=== PATIENT | male | born 1970 | race African-American/Black ===

== ENCOUNTER 2019-10-29 16:24 | Emergency (ER) | payer BC ==
[~2019-10-29] VITALS: Ht 182.9 cm; Wt 106.6 kg
[~2019-10-29 16:24] MED LIST: ACETAMINOPHEN325 M1 PO; ASPIRIN EC81 M1 PO; CALCIUM GLUCON650 MG PO; HYDROCHLOROTHIA25 M1 PO; HYDROCODON-ACE1 EAC7 PO; K-DUR 20 MEQ T20 MEQ PO; KLOR-CON 10 ER10 MEQ; KLOR-CON 10 ER10 MEQ PO; MAXALT MLT10 MG PO; NAPROSYN500 MG PO; NORCO 5-325 TA1 EACH PO
[2019-10-29 16:50] LABS: HEMATOCRIT 23.4 % (42.0-52.0); MCH 19.1 pg (26.0-34.0); MCHC 29.9 g/dL (28.0-37.0); MCV 63.7 fL (80.0-100.0); PLATELET COUNT 372 thou/uL (150-400); RBC 3.68 mil/uL (4.50-6.00); RDW 19.9 % (10.5-14.5); WBC 6.6 thou/uL (4.0-11.0)
[2019-10-29 17:08] LABS: ANION GAP 11 mmol/L (7-16); BUN 14 mg/dL (7-18); CHLORIDE 101 mmol/L (98-107); CO2 23 mmol/L (21-32); CREATININE 1.5 mg/dL (0.7-1.3); GLUCOSE 105 mg/dL (74-106); SODIUM 135 mmol/L (136-145)
[2019-10-29 17:13] LABS: ABSOLUTE NEUTROPHILS 3.3 thou/uL (1.4-8.2); ANISOCYTOSIS 1+
[2019-10-29 17:14] LABS: HYPOCHROMASIA 2+; MICROCYTES 2+; POLYCHROMASIA OCCASIONAL
[2019-10-29 17:18] LABS: ALBUMIN 3.4 g/dL (3.4-5.0); DIRECT BILIRUBIN 0.4 mg/dL (<0.1-0.2); SGOT 26 U/L (15-37); SGPT 30 U/L (30-65); TOTAL BILIRUBIN 1.2 mg/dL (0.2-1.0); TROPONIN-I <0.06 ng/mL (<0.06)
[2019-10-29 20:21] LABS: HEMATOCRIT 24.8 % (42.0-52.0); HEMOGLOBIN 7.4 gm/dL (14.0-18.0); MCH 19.1 pg (26.0-34.0); MCHC 29.8 g/dL (28.0-37.0); MCV 64.1 fL (80.0-100.0); RBC 3.86 mil/uL (4.50-6.00); RDW 19.8 % (10.5-14.5); WBC 6.8 thou/uL (4.0-11.0)
[2019-10-29 20:31] LABS: URINE BILIRUBIN NEGATIVE (Negative); URINE BLOOD NEGATIVE (Negative); URINE CLARITY CLEAR; URINE COLOR YELLOW; URINE GLUCOSE-RANDOM* NEGATIVE (Negative); URINE KETONES NEGATIVE (Negative); URINE LEUKOCYTES-REFLEX NEGATIVE (Negative); URINE NITRITE-REFLEX NEGATIVE (Negative); URINE PROTEIN (DIPSTICK) NEGATIVE (Negative); URINE SPECIFIC GRAVITY <= 1.005 (1.005-1.035); URINE UROBILINOGEN 0.2 E.U./dl (0.2-1.0)
[2019-10-29] MEDS ORDERED: IRON325 M1 PO (20:47)
[2019-10-29 21:33] VITALS: BP 125/74
--- NOTE | 2019-10-30 08:18 | EKG ---
[facility] [place] [address] ELECTROCARDIOGRAM REPORT Name: JULIO CÉSAR MALAVE Room #: DEP [facility]#: [id number] Admission: 10/29/19 Attend Phys: Discharge: 10/29/19 Date of : 68 Report #: [id number] THIS REPORT FOR: cc: Trang Angulo MD, Karla L. 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
== END 2019-10-29 21:34 | disposition home or self-care (01) ==
LOC: ER 16:24
PROVIDERS: Emergency Medicine
DX: T67.8XXA Other effects of heat and light, initial encounter (principal); D64.9 Anemia, unspecified; E87.6 Hypokalemia; R55 Syncope and collapse; I10 Essential (primary) hypertension; Z90.49 Acquired absence of other specified parts of digestive tract; Z79.899 Other long term (current) drug therapy; X58.XXXA Exposure to other specified factors, initial encounter; Y93.89 Activity, other specified; Y92.89 Other specified places as the place of occurrence of the external cause; Y99.8 Other external cause status

== ENCOUNTER 2021-03-29 02:58 | Emergency (ER) | payer BC ==
[~2021-03-29] VITALS: Ht 182.9 cm; Wt 111.1 kg
[~2021-03-29 02:58] MED LIST changes: +IRON325 M1 PO
[2021-03-29] MEDS ORDERED: CLARITIN10 MG PO (03:15)
[2021-03-29 03:48] LABS: ABSOLUTE NEUTROPHILS 3.5 thou/uL (1.4-8.2); BASOPHILS 1.3 % (0.0-2.0); EOSINOPHILS 5.2 % (0.0-3.0); HEMATOCRIT 36.8 % (42.0-52.0); HEMOGLOBIN 12.7 gm/dL (14.0-18.0); LYMPHOCYTES 27.2 % (24.0-44.0); MCH 30.7 pg (26.0-34.0); MCHC 34.4 g/dL (28.0-37.0); MCV 89.3 fL (80.0-100.0); MONOCYTES 11.9 % (1.0-8.0); PLATELET COUNT 327 thou/uL (150-400); POLYS 54.4 % (36.0-66.0); RBC 4.13 mil/uL (4.50-6.00); RDW 16.4 % (10.5-14.5); WBC 6.5 thou/uL (4.0-11.0)
[2021-03-29 03:54] LABS: CREATININE 1.2 mg/dL (0.7-1.3); POTASSIUM 3.4 mmol/L (3.5-5.1)
[2021-03-29 04:04] LABS: ALBUMIN 3.7 g/dL (3.4-5.0); TOTAL BILIRUBIN 1.2 mg/dL (0.2-1.0); TOTAL PROTEIN 7.6 g/dL (6.4-8.2)
[2021-03-29] MEDS ORDERED: PROMETH-CODEIN 65 ML PO (06:58)
[2021-03-29 07:39] VITALS: BP 121/74
--- NOTE | 2021-03-29 12:46 | EKG ---
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: : 1970 Requested By: Jenny Bailey Order Number: [id number] MD: Edgar Hensley Measurements Intervals [place] Rate: 83 P: 49 NE: 138 QRS: -33 QRSD: 103 T: 48 QT: 402 QTc: 473 Interpretive Statements Sinus rhythm Left axis deviation Baseline wander in lead(s) V1 Compared to ECG 10/29/2019 16:26:15 Left-axis deviation now present Electronically Signed On 03-29-2021 12:46:31 [employer] by Edgar Hensley [email or web address] <ELECTRONICALLY SIGNED> By: Edgar Hensley MD 03/29/21 1246 0337 033 Edgar Hensley MD /ISSA
== END 2021-03-29 07:57 | disposition home or self-care (01) ==
LOC: ER 02:58
PROVIDERS: Emergency Medicine
DX: R10.11 Right upper quadrant pain (principal); Z20.822 Contact with and (suspected) exposure to COVID-19; R05.9 Cough, unspecified; R19.7 Diarrhea, unspecified; R06.00 Dyspnea, unspecified; J06.9 Acute upper respiratory infection, unspecified; I10 Essential (primary) hypertension; Z79.899 Other long term (current) drug therapy; Z90.49 Acquired absence of other specified parts of digestive tract; Z98.84 Bariatric surgery status